=== PATIENT | male | born 1975 | race Two or more races ===

== ENCOUNTER 2018-10-16 15:19 | Emergency (ER) | payer OTHER ==
[~2018-10-16] VITALS: Ht 177.8 cm; Wt 79.4 kg
[2018-10-16 15:38] VITALS: BP 131/82
[2018-10-16] MEDS ORDERED: NKM (15:40)
[2018-10-16] MEDS ORDERED: Lidocaine 1% MPF 10mg/ml 5ml INJ ONE (16:00)
[2018-10-16 16:41] LABS: APPEARANCE,URINE CLEAR; BILIRUBIN, URINE NEGATIVE (NEGATIVE); COLOR,URINE PALE YELLOW; GLUCOSE, URINE (UA) NEGATIVE (NEGATIVE); KETONES,URINE NEGATIVE (NEGATIVE); LEUKOCYTE ESTERASE ,URINE 1+ (NEGATIVE); NITRITE,URINE NEGATIVE (NEGATIVE); PH,URINE 6 (4.5-8.0); PROTEIN,URINE NEGATIVE (NEGATIVE); UROBILINOGEN,URINE NORMAL MG/DL (0.0-1.0)
[2018-10-16 16:46] LABS: BASOPHILS % (AUTO) 0.9 % (0.0-2.0); EOSINOPHILS % (AUTO) 5.1 % (0.0-3.0); HEMATOCRIT 41.7 % (42.0-52.0); HEMOGLOBIN 14.6 G/DL (14.2-18.0); LYMPHOCYTES % (AUTO) 25.6 % (20.0-45.0); MEAN CORPUSCULAR VOLUME 86 FL (80-99); MONOCYTES % (AUTO) 7.6 % (1.0-10.0); NEUTROPHILS % (AUTO) 60.8 % (45.0-75.0); PLATELET COUNT 123 K/UL (150-450); RED BLOOD COUNT 4.83 M/UL (4.70-6.10); RED CELL DISTRIBUTION WIDTH 11.3 % (11.6-14.8); WHITE BLOOD COUNT 7.3 K/UL (4.8-10.8)
--- NOTE | 2018-10-16 16:46 | Emergency Room Report ---
History of Present Illness General Chief Complaint: General Complaint Source: Patient (Marlon Lujan) Present Illness HPI 43-year-old male with significant history of inflammatory bowel disease unknown which kind and gastritis here complaining of increased diffuse abdominal pain for the past week as well as dark stools. He reports emesis after eating however he reports eating spicy and acidic fluid and a heavy tobacco smoker. Ninth alcohol. His fever chills recently. He complains of generalized fatigue is abdominal pain. Has been able to move taking oral hydration. Denies chest pain, outpatient, SOB. complains of excess acid reflux. does not take any medication for his acid reflux. he also reports that he was being sexually active with one female partner was using condom however, brodustin and his partner report that this is positive for yeast infection unknown of any sexually transmitted diseases. Patient denies penile discharge, penile ulcers, penile pruritus, dysuria, urinary frequency, and bacteria, suprapubic pain, seated symptoms. He is requesting to be tested for and prophylactically treated for both chlamydia and gonorrhea. (Marlon Lujan) Allergies: Coded Allergies: No Known Allergies (Unverified , 10/16/18) Patient History Past Medical History: see triage record Past Surgical History: unable to obtain Pertinent Family History: none Immunizations: UTD Reviewed Nursing Documentation: PMH: Agreed; PSxH: Agreed (Marlon Lujan) Nursing Documentation-PMH Hx Gastrointestinal Problems: Yes (Marlon Lujan) Review of Systems All Other Systems: negative except mentioned in HPI (Marlon Lujan) Physical Exam Vital Signs Date Time Temp Pulse Resp B/P (MAP) Pulse Ox O2 Delivery O2 Flow Rate FiO2 10/16/18 15:31 98.1 94 18 130/86 96 Room Air Sp02 EP Interpretation: reviewed, normal General Appearance: normal inspection, well appearing, no apparent distress, alert, GCS 15 Head: normocephalic, atraumatic Eyes: bilateral eye normal inspection, bilateral eye PERRL ENT: normal ENT inspection, hearing grossly normal, normal pharynx Neck: normal inspection, full range of motion, supple Respiratory: normal inspection, chest non-tender, normal breath sounds, no respiratory distress, no wheezing Cardiovascular #1: normal inspection, no edema, no murmur Gastrointestinal: normal bowel sounds, no mass, no organomegaly, no peritonitis , no bruit, non-distended, tenderness - left lower quadrant and right lower quadrant, other - Negative McBurney's negative Rovsing's negative obturator and negative psoas Rectal: normal rectal tone, heme negative stool, hemorrhoids - external Genitourinary: normal inspection, no CVA tenderness Musculoskeletal: normal inspection, back normal, digits/nails normal, gait/ station normal Neurologic: normal inspection, alert, oriented x3, responsive, clerk stenographer III-XII nml as tested Psychiatric: normal inspection, judgement/insight normal, memory normal Skin: normal inspection, normal color, no rash, warm/dry Lymphatic: normal inspection, no adenopathy (Marlon Lujan) Medical Decision Making PA Attestation All diagnoses and treatment plans were reviewed and discussed by supervising physician Dr. Le (Marlon Lujan) Diagnostic Impression: Primary Impression: Gastritis Additional Impressions: External hemorrhoid Unprotected sexual intercourse UTI (urinary tract infection) ER Course 43-year-old male with significant history of inflammatory bowel disease unknown which kind and gastritis here complaining of increased diffuse abdominal pain for the past week as well as dark stools. He reports emesis after eating however he reports eating spicy and acidic fluid and a heavy tobacco smoker. Ninth alcohol. His fever chills recently. He complains of generalized fatigue is abdominal pain. Has been able to move taking oral hydration. Denies chest pain, outpatient, SOB. complains of excess acid reflux. does not take any medication for his acid reflux. he also reports that he was being sexually active with one female partner was using condom however, na and his partner report that this is positive for yeast infection unknown of any sexually transmitted diseases. Patient denies penile discharge, penile ulcers, penile pruritus, dysuria, urinary frequency, and bacteria, suprapubic pain, seated symptoms. He is requesting to be tested for and prophylactically treated for both chlamydia and gonorrhea. Ddx considered but are not limited to inflammatory bowel disease, gastritis, diverticulitis, chlamydia, gonorrhea, urinary tract infection Vital signs: are WNL, pt. is afebrile H&PE are most consistent with UTI, sexual encounter no protection, gastritis, external hemorrhoid ORDERS: UA, GC and chlamydia, FOBT, CBC, CMP, lipase, azithromycin, rocephin 250mg IM, omeprazole, anusol cream ED INTERVENTIONS:rocephin 250mg IM DISCHARGE: At this time pt. is stable for d/c to home. Will provide printed patient care instructions, and any necessary prescriptions. Care plan and follow up instructions have been discussed with the patient prior to discharge. UA pos leuk, 1+ blood, wbc in UA, neg FOBT (Marlon Lujan) ER Course Please see above note. Patient examined by me. I agree with assessment and treatment plan. (Tacho Le MD) Last Vital Signs Date Time Temp Pulse Resp B/P (MAP) Pulse Ox O2 Delivery O2 Flow Rate FiO2 10/16/18 15:31 98.1 94 18 130/86 96 Room Air (Marlon Lujan) Last Vital Signs Date Time Temp Pulse Resp B/P (MAP) Pulse Ox O2 Delivery O2 Flow Rate FiO2 10/16/18 17:49 98.1 76 18 132/81 96 Room Air Status: improved (Tacho Le MD) Disposition: HOME, SELF-CARE Condition: Stable Scripts Hydrocortisone Hc 2.5% Cream (ANUSOL-HC 2.5% CREAM) Y Cr 1 GM RC BID, #30 GM Prov: Marlon Lujan 10/16/18 Azithromycin (AZITHROMYCIN) 500 Mg Tablet 2 TAB ORAL ONCE for 1 Day, #2 TAB Prov: Marlon Lujan 10/16/18 Omeprazole (OMEPRAZOLE) 20 Mg Capsule.dr 20 MG ORAL DAILY, #30 CAP Prov: Marlon Lujan 10/16/18 Patient Instructions: Gastritis, Adult, [id number], Hemorrhoids, [id number] , Urinary Tract Infection, [id number] Additional Instructions: take medication as directed, avoid spicy and acidic foods, avoid smoking, follow with a primary care provider for referral to gastroenterology due to chronic gastritis, avoid taking Pepto-Bismol, NSAIDs, Madeline-[place], alcohol. Pending results for chlamydia and gonorrhea however patient verbally expressed that he wants the prophylactic treatment for both and was given an injection of Rocephin and discharged with azithromycin patient understands that his UTI symptoms will also be improved with the antibiotic that he will be taking. patient to take omeprazole as directed Marlon Lujan Oct 16, 2018 16:46 Tacho Le MD Oct 17, 2018 03:03
[2018-10-16 16:54] LABS: ANION GAP 8 mmol/L (5-15); BLOOD UREA NITROGEN 15 mg/dL (7-18); CARBON DIOXIDE 25 MMOL/L (21-32); CHLORIDE 107 MMOL/L (98-107); POTASSIUM 4.3 MMOL/L (3.5-5.1); SODIUM 140 MMOL/L (136-145)
[2018-10-16 16:59] LABS: ALANINE AMINOTRANSFERASE 67 U/L (12-78); ALBUMIN 3.7 G/DL (3.4-5.0); ALKALINE PHOSPHATASE 75 U/L (46-116); ASPARTATE AMINO TRANSFERASE 39 U/L (15-37); BILIRUBIN,TOTAL 0.6 MG/DL (0.2-1.0)
[2018-10-16] MEDS ORDERED: OMEPRAZOLE20 M2 ORAL (17:38)
[2018-10-16] MEDS ORDERED: AZITHROMYCIN500 MG ORAL (17:38)
[2018-10-16] MEDS ORDERED: ANUSOL-HC30 GM RC (17:48)
[2018-10-16 17:49] VITALS: BP 132/81
== END 2018-10-16 17:49 | disposition home or self-care (01) ==
LOC: EMR 16:00
DX: K29.70 Gastritis, unspecified, without bleeding (principal); N39.0 Urinary tract infection, site not specified; K64.4 Residual hemorrhoidal skin tags; F17.200 Nicotine dependence, unspecified, uncomplicated
CPT/HCPCS: 36415; 80053; 81001; 83690; 85025; 87086; 87491; 96372; 96374; 99284; J0696

== ENCOUNTER 2019-08-27 15:12 | Emergency (ER) | payer SELFPAY ==
[~2019-08-27] VITALS: Ht 177.8 cm; Wt 78.9 kg
[~2019-08-27 15:12] MED LIST: ANUSOL-HC30 GM RC; AZITHROMYCIN500 MG ORAL; NKM; OMEPRAZOLE20 M2 ORAL
[2019-08-27 15:31] VITALS: BP 137/88
--- NOTE | 2019-08-27 15:44 | Emergency Room Report ---
History of Present Illness General Chief Complaint: Abdominal Pain Source: Patient Present Illness HPI Patient presents with complaints of continued epigastric abdominal pain reports that he had an endoscopy about 10 years ago he has also had repeated H. pylori infections With this episode over the past 2 to 3 days he had increased epigastric pain Increased nausea he was unable to control the discomfort with oral medications and Pepto-Bismol and presents to the ER denies any dysuria frequency denies any flank pain Denies any recent trauma Allergies: Coded Allergies: No Known Allergies (Unverified , 10/16/18) Patient History Past Medical History: see triage record Reviewed Nursing Documentation: PMH: Agreed; PSxH: Agreed Nursing Documentation-PMH Past Medical History: No History, Except For Hx Gastrointestinal Problems: Yes - gastric ulcer Review of Systems All Other Systems: negative except mentioned in HPI Physical Exam Vital Signs Date Time Temp Pulse Resp B/P (MAP) Pulse Ox O2 Delivery O2 Flow Rate FiO2 08/27/19 15:31 98.1 110 20 137/88 (104) 96 Room Air Sp02 EP Interpretation: reviewed, normal General Appearance: well appearing, no apparent distress Head: normocephalic, atraumatic Eyes: bilateral eye PERRL, bilateral eye EOMI ENT: hearing grossly normal, normal pharynx, TMs + canals normal, uvula midline Neck: full range of motion, supple, no meningismus, no bony tend Respiratory: lungs clear, normal breath sounds, no rhonchi, no respiratory distress, no retraction, no accessory muscle use Cardiovascular #1: normal peripheral pulses, regular rate, rhythm, no edema, no gallop, no JVD, no murmur Gastrointestinal: normal bowel sounds, non tender, soft, no mass, no organomegaly, non-distended, no guarding, no hernia, no pulsatile mass, no rebound Genitourinary: no CVA tenderness Musculoskeletal: normal inspection Neurologic: oriented x3, responsive, building guard deputy sheriff III-XII nml as tested, motor strength/ tone normal, sensory intact Psychiatric: mood/affect normal Lymphatic: normal inspection, no adenopathy Medical Decision Making Diagnostic Impression: Primary Impression: Abdominal pain ER Course With the history exam and presentation, multiple differentials considered, including but not limited to appendicitis, gastritis, cholecystitis, diverticulitis Patient had IV ordered along with extensive blood work and hydration along with pain medication At this time was told by nursing staff that the patient did not want to pursue any further evaluation or work-up he had A flight to catch to [place] and reports that he will find outpatient referrals reports that he feels much better Patient is discussed regarding That with lack of any work-up other underlying conditions cannot be fully diagnosed and that he is leaving AGAINST MEDICAL ADVICE Patient has full decision-making capacity and is choosing not to have any further work-up Labs Test 08/27/19 15:48 Urine Color Pale yellow Urine Appearance Clear Urine pH 6 (4.5-8.0) Urine Specific Success 1.015 (1.005-1.035) Urine Protein 2+ (NEGATIVE) Urine Glucose (UA) Negative (NEGATIVE) Urine Ketones Negative (NEGATIVE) Urine Blood 1+ (NEGATIVE) Urine Nitrite Negative (NEGATIVE) Urine Bilirubin Negative (NEGATIVE) Urine Urobilinogen Normal MG/DL (0.0-1.0) Urine Leukocyte Esterase Negative (NEGATIVE) Urine RBC 2-4 /HPF (0 - 0) Urine WBC 0-2 /HPF (0 - 0) Urine Squamous Epithelial Cells None /LPF (NONE/OCC) Urine Bacteria Few /HPF (NONE) Last Vital Signs Date Time Temp Pulse Resp B/P (MAP) Pulse Ox O2 Delivery O2 Flow Rate FiO2 08/27/19 15:31 98.1 110 20 137/88 (104) 96 Room Air Status: improved Disposition: HOME, SELF-CARE Condition: Improved Scripts Famotidine (PEPCID AC) 20 Mg Tablet 20 MG PO DAILY for 10 Days, TAB Prov: Janine Arthur DO 08/27/19 Additional Instructions: Patient is provided with the discharge instructions notified to follow up with primary doctor in the next 2-3 days otherwise return to the er with any worsening symptoms. Please note that this report is being documented using Inquir[employer] technology. This can lead to erroneous entry secondary to incorrect interpretation by the dictating instrument. Janine Arthur DO Aug 27, 2019 15:44
[2019-08-27] MEDS ORDERED: Metoclopramide 10mg/2ml Inj IVP ONE (15:45)
[2019-08-27] MEDS ORDERED: DiphenhydrAMINE 50mg/ml Inj IVP ONE (15:45)
[2019-08-27 16:17] LABS: APPEARANCE,URINE CLEAR; BILIRUBIN, URINE NEGATIVE (NEGATIVE); COLOR,URINE PALE YELLOW; GLUCOSE, URINE (UA) NEGATIVE (NEGATIVE); KETONES,URINE NEGATIVE (NEGATIVE); LEUKOCYTE ESTERASE ,URINE NEGATIVE (NEGATIVE); NITRITE,URINE NEGATIVE (NEGATIVE); PH,URINE 6 (4.5-8.0); PROTEIN,URINE 2+ (NEGATIVE); UROBILINOGEN,URINE NORMAL MG/DL (0.0-1.0)
--- NOTE | 2019-08-27 16:47 | NUR ---
ED Nurse Note: only contact with pt. pt given plan of care for labs and iv start. pt relates he wants to only have urine done and refusing iv/labs. dr sebastian aware and to speak with pt.
[2019-08-27] MEDS ORDERED: PEPCID AC20 M2 PO (16:57)
--- NOTE | 2019-08-27 17:17 | NUR ---
ER DISCHARGE NOTE: Patient is cleared to be discharged per ERMD, pt is aox4, on room air, with stable vital signs. pt was given dc and prescription instructions, pt was able to verbalize understanding, pt id band removed without complications. pt is able to ambulate with steady gait. pt took all belongings.
[2019-08-27 17:18] VITALS: BP 171/102
== END 2019-08-27 17:18 | disposition home or self-care (01) ==
LOC: EMR 16:00
DX: R10.13 Epigastric pain (principal); Z87.11 Personal history of peptic ulcer disease
CPT/HCPCS: 81003; 99282

== ENCOUNTER 2020-01-19 09:08 | Emergency (ER) | payer BC, OTHER ==
[~2020-01-19] VITALS: Ht 177.8 cm; Wt 73.9 kg
[~2020-01-19 09:08] MED LIST changes: +PEPCID AC20 M2 PO
[2020-01-19 09:25] VITALS: BP 134/105
--- NOTE | 2020-01-19 09:25 | NUR ---
ED Nurse Note: Patient walked into ED c/o n/v/d since yesterday. Patient has not had any recent travel outside of the country, but states he takes a lot of [employer]. Patient AxO x 4, no s/s of acute distress.
--- NOTE | 2020-01-19 10:05 | NUR ---
ED Nurse Note: Dr. Arthur at bedside
[2020-01-19] MEDS ORDERED: ZOFRAN4 M3 ORAL (10:09)
[2020-01-19] MEDS ORDERED: FAMOTIDINE20 MG ORAL (10:09)
[2020-01-19 10:15] VITALS: BP 134/105
--- NOTE | 2020-01-19 10:15 | NUR ---
ER DISCHARGE NOTE: Patient is cleared to be discharged per Dr. Arthur, pt is aox4, on room air, with stable vital signs. pt was given dc and prescription instructions, pt was able to verbalize understanding, pt id band and iv site removed without complications. pt is able to ambulate with steady gait. pt took all belongings.
--- NOTE | 2020-01-19 13:44 | Emergency Room Report ---
History of Present Illness General Chief Complaint: Flu Like Symptoms Source: Patient Present Illness HPI Patient presents with complaints of epigastric discomfort episode of diarrhea since yesterday Had some mild nausea as well Denies any blood in the stool denies any vomiting Denies any fevers or chills denies any recent travel or trauma COVID-19 risk:Travel to affect: No Allergies: Coded Allergies: No Known Allergies (Unverified , 10/16/18) Patient History Past Medical History: see triage record Reviewed Nursing Documentation: PMH: Agreed; PSxH: Agreed Nursing Documentation-PMH Past Medical History: No Stated History Hx Cardiac Problems: No Hx Hypertension: No Hx Pacemaker: No Hx Asthma: No Hx COPD: No Hx Diabetes: No Hx Cancer: No Hx Gastrointestinal Problems: Yes - gastric ulcer Hx Dialysis: No History Of Psychiatric Problem: No Hx Neurological Problems: No Hx Cerebrovascular Accident: No Hx Seizures: No Review of Systems All Other Systems: negative except mentioned in HPI Physical Exam Vital Signs Date Time Temp Pulse Resp B/P (MAP) Pulse Ox O2 Delivery O2 Flow Rate FiO2 01/19/20 09:16 97.5 63 15 134/105 (115) 97 Room Air Sp02 EP Interpretation: reviewed, normal General Appearance: well appearing, no apparent distress Head: normocephalic, atraumatic Eyes: bilateral eye PERRL, bilateral eye EOMI ENT: hearing grossly normal, normal pharynx, TMs + canals normal, uvula midline Neck: full range of motion, supple, no meningismus, no bony tend Respiratory: lungs clear, normal breath sounds, no rhonchi, no respiratory distress, no retraction, no accessory muscle use Cardiovascular #1: normal peripheral pulses, regular rate, rhythm, no edema, no gallop, no JVD, no murmur Gastrointestinal: normal bowel sounds, non tender, soft, no mass, no organomegaly, non-distended, no guarding, no hernia, no pulsatile mass, no rebound Genitourinary: no CVA tenderness Musculoskeletal: back normal Neurologic: motor strength/tone normal, product support representative III-XII nml as tested, oriented x3 , sensory intact, responsive Psychiatric: mood/affect normal Skin: no rash Lymphatic: normal inspection, no adenopathy Medical Decision Making Diagnostic Impression: Primary Impression: Abdominal pain Additional Impression: diarrhea ER Course Patient's presentation is consistent with multiple differentials including but not limited to enteritis, gastritis, possible flu pathology including but not limited to coronavirus Patient is discussed regarding his symptoms and findings At this time he feels well denies any vomiting or nausea Patient will keep a close eye on himself with any worsening symptoms such as increased diarrhea or pain he will return to the ER at this time will have diet control and close follow-up Last Vital Signs Date Time Temp Pulse Resp B/P (MAP) Pulse Ox O2 Delivery O2 Flow Rate FiO2 01/19/20 10:15 97.5 63 15 134/105 97 Room Air Status: unchanged Disposition: HOME, SELF-CARE Condition: Stable Scripts Ondansetron* (ZOFRAN*) 4 Mg Tablet 4 MG ORAL Q6H PRN for Nausea & Vomiting, #12 TAB Prov: Janine Arthur DO 01/19/20 Famotidine* (Pepcid 20mg tablet*) 20 Mg Tablet 20 MG ORAL DAILY, #20 TAB 0 Refills Prov: Janine Arthur DO 01/19/20 Referrals: NON PHYSICIAN (PCP) [facility] Kaelyn Ferrari [facility] Patient Instructions: Abdominal Pain, Adult, [id number], Diarrhea, Adult, [id number] Additional Instructions: Patient is provided with the discharge instructions notified to follow up with primary doctor in the next 2-3 days otherwise return to the er with any worsening symptoms. Please note that this report is being documented using Dragonplay technology. This can lead to erroneous entry secondary to incorrect interpretation by the dictating instrument. Janine Arthur DO Jan 19, 2020 13:44
== END 2020-01-19 10:15 | disposition home or self-care (01) ==
LOC: EMR 09:55
DX: R10.9 Unspecified abdominal pain (principal); R19.7 Diarrhea, unspecified
CPT/HCPCS: 99282